=== PATIENT | female | born 1995 | race Caucasian/White ===

== ENCOUNTER 2017-02-19 03:33 | Emergency (ER) | payer OTHER ==
[2017-02-19 03:48] VITALS: BP 129/62
[2017-02-19 04:24] LABS: APPEARANCE,URINE CLEAR; BILIRUBIN,URINE NEGATIVE (NEGATIVE); GLUCOSE, URINE NEGATIVE (NEGATIVE); KETONES,URINE NEGATIVE (NEGATIVE); LEUKOCYTE ESTERASE,URINE MODERATE (NEGATIVE); NITRITE,URINE NEGATIVE (NEGATIVE); PROTEIN,URINE NEGATIVE (NEGATIVE); UROBILINOGEN,URINE NEGATIVE mg/dL (<2.0)
[2017-02-19] MEDS ORDERED: CEPHALEXIN 500 MG CAPSULE PO ONE (04:31)
[2017-02-19] MEDS ORDERED: PHENAZOPYRIDINE HCL 200 MG TABLET PO ONE (04:32)
--- NOTE | 2017-02-19 04:36 | ER Document Report ---
HPI - HPI Patient complains to provider of: dysuria Pain Level: 1 Context: Patient is a 21-year-old female that comes emergency department for chief complaint of urinary frequency, dysuria, and seeing some blood in her urine earlier today. Symptoms started today. Patient states she gets about one urinary tract infection every year. She denies flank pain, nausea, vomiting, fever, chills. LMP within the past month. She denies any other medical history. - CARDIOVASCULAR Cardiovascular: DENIES: Chest pain - RESPIRATORY Respiratory: DENIES: Trouble Breathing, Coughing - URINARY Urinary: REPORTS: Dysuria, Urgency, Frequency - REPRODUCTIVE Reproductive: DENIES: : - DERM Skin Color: Normal Skin Problems: None - NURSING COMMENTS Comment: pt states that she has been having lower abd pain. states she has dysuria. states that she is going more than normal. NAD. Resp e/u. A&Ox4. Past Medical History - General Information source: Patient - Social History Smoking Status: Never Smoker Frequency of alcohol use: None Drug Abuse: None Lives with: Family Family History: Other - Asthma Patient has suicidal ideation: No Patient has homicidal ideation: No - Medical History Medical History: Negative Renal/ Medical History: Denies: Hx Peritoneal Dialysis Surgical Hx: Negative - Immunizations Immunizations up to date: Yes Hx Diphtheria, Pertussis, Tetanus Vaccination: Yes Vertical Provider Document - CONSTITUTIONAL General Appearance: WD/WN, No Apparent Distress - INFECTION CONTROL TRAVEL OUTSIDE OF THE [place] IN LAST 30 DAYS: No - HEENT HEENT: Atraumatic, Normocephalic - NECK Neck: Normal Inspection - RESPIRATORY Respiratory: Breath Sounds Normal, No Respiratory Distress O2 Sat by Pulse Oximetry: 98 - CARDIOVASCULAR Cardiovascular: Regular Rate, Regular Rhythm - GI/ABDOMEN Gastrointestinal: Abdomen Soft, Abdomen Non-Tender - BACK Back: Normal Inspection. negative: CVA Tenderness-Right, CVA Tenderness-Left - NEURO Level of Consciousness: Awake, Alert, Appropriate - DERM Integumentary: Warm, Dry, No Rash Course - Re-evaluation Re-evalutation: Patient is alert, well appearing, denying any pain. No CVA tenderness, no fever , vital signs unremarkable. Urine is not particularly impressive with only moderate leukocyte esterase and some white blood cells, however patient has symptoms consistent with urinary tract infection, she will be treated for this. Dipstick is positive for blood and blood is not in the urine, suggests myoglobin, however patient denies any muscular pain or significant exercise, patient also is extremely well-hydrated based on her urine. Recommended she continue hydration, take the antibiotic as prescribed, and follow-up with [facility]. Discussed return precautions, patient states understanding and agreement. - Vital Signs Vital signs: Temp Pulse Resp BP Pulse Ox 97.7 F 59 L 16 129/62 H 98 02/19/17 03:46 02/19/17 03:46 02/19/17 03:46 02/19/17 03:46 02/19/17 03:46 - Laboratory Laboratory results interpreted by me: 02/19/17 03:49 Urine Blood LARGE H Ur Leukocyte Esterase MODERATE H Discharge - Discharge Clinical Impression: Dysuria Urinary tract infection Qualifiers: Urinary tract infection type: site unspecified Hematuria presence: without hematuria Qualified Code(s): N39.0 - Urinary tract infection, site not specified Condition: Stable Disposition: HOME, SELF-CARE Additional Instructions: Take the Keflex as directed for the urinary tract infection. Drink plenty of fluids and urinate at least 4-5 times daily to avoid infection. Follow-up with primary care. Return to emergency department for any concerning symptoms. Prescriptions: Cephalexin Monohydrate [Keflex 500 mg Capsule] 500 mg PO BID #10 capsule
== END 2017-02-19 04:42 | disposition home or self-care (01) ==
LOC: ER 03:33
DX: N39.0 Urinary tract infection, site not specified (principal); R30.0 Dysuria; R35.0 Frequency of micturition; R39.15 Urgency of urination; R10.30 Lower abdominal pain, unspecified
CPT/HCPCS: 99283; 81025; 81001; J3490

== ENCOUNTER 2018-04-07 10:47 | Emergency (ER) | payer OTHER ==
[2018-04-07 10:53] VITALS: BP 115/71
--- NOTE | 2018-04-07 10:54 | ER Document Report ---
HPI - HPI Patient complains to provider of: frequency Onset: Yesterday Pain Level: 1 Context: 23-year-old who was on a light menses at this time urinary frequency last night and some pelvic pain this morning (unsure if that is period cramps). No vaginal discharge or odor. No history of STDs. She does have a history of urinary tract infections.no flank pain and no fever or chills. Associated Symptoms: None Exacerbated by: Denies Relieved by: Denies Similar symptoms previously: No Recently seen / treated by doctor: No - ROS ROS below otherwise negative: Yes Systems Reviewed and Negative: Yes All other systems reviewed and negative - REPRODUCTIVE Reproductive: DENIES: : Past Medical History - General Information source: Patient - Social History Smoking Status: Never Smoker Frequency of alcohol use: None Drug Abuse: None Lives with: Family Family History: Other - Asthma - Medical History Medical History: Negative Renal/ Medical History: Denies: Hx Peritoneal Dialysis Surgical Hx: Negative - Immunizations Immunizations up to date: Yes Hx Diphtheria, Pertussis, Tetanus Vaccination: Yes Vertical Provider Document - CONSTITUTIONAL Agree With Documented VS: Yes Exam Limitations: No Limitations General Appearance: No Apparent Distress - INFECTION CONTROL TRAVEL OUTSIDE OF THE [place] IN LAST 30 DAYS: No - NECK Neck: Supple - GI/ABDOMEN Gastrointestinal: Abdomen Soft, Abdomen Non-Tender - BACK Back: negative: CVA Tenderness-Right, CVA Tenderness-Left - NEURO Level of Consciousness: Awake - DERM Integumentary: No Rash Course - Re-evaluation Re-evalutation: 04/07/18 11:37 UA is negative for urinary tract infection and the test is negative. She has no symptoms at this time. - Vital Signs Vital signs: Temp Pulse Resp BP Pulse Ox 98.0 F 68 16 115/71 97 04/07/18 10:51 04/07/18 10:51 04/07/18 10:51 04/07/18 10:51 04/07/18 10:51 Discharge - Discharge Clinical Impression: Resolved urinary frequency, Vaginal bleeding Condition: Good Disposition: HOME, SELF-CARE Additional Instructions: Urinalysis only shows red blood cells and there is no white blood cells or bacteria. The urine culture is pending test is negative. Drink plenty of water today Return to the emergency room for any recurrence of frequency urgency hard to hold it fever chills or back pain Forms: Return to Work
[2018-04-07 11:26] LABS: APPEARANCE,URINE CLEAR; BILIRUBIN,URINE NEGATIVE (NEGATIVE); COLOR,URINE YELLOW; GLUCOSE, URINE NEGATIVE (NEGATIVE); KETONES,URINE NEGATIVE (NEGATIVE); LEUKOCYTE ESTERASE,URINE NEGATIVE (NEGATIVE); NITRITE,URINE NEGATIVE (NEGATIVE); PROTEIN,URINE NEGATIVE (NEGATIVE); URINE SPECIFIC GRAVITY 1.012; UROBILINOGEN,URINE NEGATIVE mg/dL (<2.0)
== END 2018-04-07 11:41 | disposition home or self-care (01) ==
LOC: ER 10:47
DX: R35.0 Frequency of micturition (principal); N93.9 Abnormal uterine and vaginal bleeding, unspecified; R10.2 Pelvic and perineal pain; Z87.440 Personal history of urinary (tract) infections
CPT/HCPCS: 81001; 81025; 87086; 99284